=== PATIENT | male | born 1960 | race African-American/Black ===

== ENCOUNTER 2017-06-02 03:10 | Emergency (ER) | payer OTHER ==
[~2017-06-02] VITALS: Ht 188 cm; Wt 105.0 kg
[~2017-06-02 03:10] MED LIST: TRAM50TA PO
[2017-06-02] MEDS ORDERED: MIDAZOLAM HCL 2 MG/2 ML VIAL IM ONE (03:30)
[2017-06-02 04:03] LABS: BASOPHILS % 0.5 % (0.0-2.0); EOSINOPHILS % 1.1 % (0.0-5.0); HEMOGLOBIN. 16.4 g/dL (14.0-18.0); LYMPHOCYTES % 34.3 % (20.0-50.0); MEAN CORPUSCULAR HEMOGLOBIN 29.5 pg (28.0-32.0); MEAN CORPUSCULAR VOLUME 87.8 fL (80.0-94.0); MEAN PLATELET VOLUME 7.5 fl (7.4-10.4); MONOCYTES % 9.3 % (2.0-8.0); NEUTROPHILS % 54.8 % (40.0-76.0); PLATELET 255 x1000/uL (130-400); RED BLOOD CELL COUNT 5.58 mill/uL (4.7-6.1); RED CELL DISTRIBUTION WIDTH 13.5 % (11.6-14.6)
[2017-06-02 04:09] LABS: PROTHROMBIN TIME 10.6 sec (9.4-11.6)
[2017-06-02 04:20] LABS: CARBON DIOXIDE 25 mEq/L (21-32); CHLORIDE 109 mEq/L (98-107); ETHANOL BLOOD 267 mg/dL
[2017-06-02 05:11] LABS: GLUCOSE URINE NEGATIVE (NEGATIVE); KETONES URINE TRACE (NEGATIVE); LEUKOCYTE ESTERASE URINE NEGATIVE (NEGATIVE); NITRITE URINE NEGATIVE (NEGATIVE); OCCULT BLOOD URINE NEGATIVE (NEGATIVE); PH URINE 5.5 (4.5-8.0); PROTEIN URINE 1+ (NEGATIVE); SPECIFIC GRAVITY URINE 1.038 (1.005-1.030); UROBILINOGEN URINE 0.2 E.U./dL (0.2-1.0)
[2017-06-02 05:12] LABS: CLARITY URINE CLEAR (CLEAR); COLOR URINE YELLOW (YELLOW)
[2017-06-02 07:31] LABS: *AMPHETAMINES SCREEN URINE NEGATIVE (NEGATIVE); *BARBITURATES SCREEN URINE NEGATIVE (NEGATIVE); *BENZODIAZEPINES SCREEN URINE NEGATIVE (NEGATIVE); *COCAINE SCREEN URINE PRESUMTIVE POSITIVE (NEGATIVE); CANNABINOID URINE SCREEN NEGATIVE (NEGATIVE); METHADONE URINE SCREEN NEGATIVE (NEGATIVE); OPIATES URINE SCREEN NEGATIVE (NEGATIVE); PHENCYCLIDINE URINE SCREEN PRESUMTIVE POSITIVE (NEGATIVE)
[2017-06-02 10:05] VITALS: BP 124/97
== END 2017-06-02 10:26 | disposition home or self-care (01) ==
LOC: ER 03:10
DX: T40.5X1A Poisoning by cocaine, accidental (unintentional), initial encounter (principal); T40.991A Poisoning by other psychodysleptics [hallucinogens], accidental (unintentional), initial encounter; T51.0X1A Toxic effect of ethanol, accidental (unintentional), initial encounter; R41.82 Altered mental status, unspecified; F17.210 Nicotine dependence, cigarettes, uncomplicated; I10 Essential (primary) hypertension; Y90.8 Blood alcohol level of 240 mg/100 ml or more; Y92.488 Other paved roadways as the place of occurrence of the external cause
CPT/HCPCS: 36415; 70450; 80053; 80305; 81001; 85025; 85610; 96372; 99285; G0482; J2250; Z7610; A4315

== ENCOUNTER 2017-12-09 11:33 | Emergency (ER) | payer SELFPAY ==
[~2017-12-09] VITALS: Ht 185.4 cm; Wt 100.0 kg
[~2017-12-09 11:33] MED LIST changes: +LEVO250T2 PO; +LISI40TA4 PO
[2017-12-09] MEDS ORDERED: LIDOCAINE HCL 1% 20ML VIAL (Pyxis) INJ INFIL ONE ×2 (16:15→18:15)
[2017-12-09] MEDS ORDERED: LIDOCAINE HCL/PF 1% 10 MG/ML 5ML VIAL IJ SCH ×2 (16:30)
[2017-12-09 19:30] VITALS: BP 144/71
[2017-12-09 20:19] LABS: *BARBITURATES SCREEN URINE NEGATIVE (NEGATIVE); *BENZODIAZEPINES SCREEN URINE NEGATIVE (NEGATIVE); *COCAINE SCREEN URINE PRESUMTIVE POSITIVE (NEGATIVE)
[2017-12-09 20:20] LABS: *AMPHETAMINES SCREEN URINE NEGATIVE (NEGATIVE); CANNABINOID URINE SCREEN NEGATIVE (NEGATIVE); METHADONE URINE SCREEN NEGATIVE (NEGATIVE); OPIATES URINE SCREEN NEGATIVE (NEGATIVE); PHENCYCLIDINE URINE SCREEN NEGATIVE (NEGATIVE)
== END 2017-12-09 21:28 | disposition home or self-care (01) ==
LOC: ER 12:43
DX: S62.613A Displaced fracture of proximal phalanx of left middle finger, initial encounter for closed fracture (principal); S63.259A Unspecified dislocation of unspecified finger, initial encounter; F17.200 Nicotine dependence, unspecified, uncomplicated; F12.10 Cannabis abuse, uncomplicated; Z79.899 Other long term (current) drug therapy; W22.8XXA Striking against or struck by other objects, initial encounter; Y93.89 Activity, other specified; Y92.89 Other specified places as the place of occurrence of the external cause; Y99.8 Other external cause status
CPT/HCPCS: 26770; 73140; 80305; 99285; J3490; Z7610; A4565

== ENCOUNTER 2018-09-03 09:06 | Emergency (ER) | payer MEDICAID, OTHER ==
[~2018-09-03] VITALS: Ht 185.4 cm; Wt 87.0 kg
[2018-09-03 16:00] VITALS: BP 147/92
== END 2018-09-03 16:00 | disposition home or self-care (01) ==
LOC: ER 09:43
DX: S62.641A Nondisplaced fracture of proximal phalanx of left index finger, initial encounter for closed fracture (principal); J20.9 Acute bronchitis, unspecified; I10 Essential (primary) hypertension; F14.10 Cocaine abuse, uncomplicated; F12.10 Cannabis abuse, uncomplicated; F17.200 Nicotine dependence, unspecified, uncomplicated; Z79.899 Other long term (current) drug therapy; X58.XXXA Exposure to other specified factors, initial encounter; Y93.89 Activity, other specified; Y92.89 Other specified places as the place of occurrence of the external cause; Y99.8 Other external cause status
CPT/HCPCS: 29130; 71045; 73120; 99283

== ENCOUNTER 2018-09-16 13:13 | Emergency (ER) | payer MEDICAID ==
[~2018-09-16] VITALS: Ht 182.9 cm; Wt 94.0 kg
[2018-09-16 15:55] VITALS: BP 149/92
== END 2018-09-16 15:49 | disposition home or self-care (01) ==
LOC: ER 13:13
DX: T18.5XXA Foreign body in anus and rectum, initial encounter (principal); F17.200 Nicotine dependence, unspecified, uncomplicated; I10 Essential (primary) hypertension; X58.XXXA Exposure to other specified factors, initial encounter; Y93.89 Activity, other specified; Y92.89 Other specified places as the place of occurrence of the external cause; Z86.11 Personal history of tuberculosis
CPT/HCPCS: 72170; 99283

== ENCOUNTER 2018-12-24 10:55 | Inpatient (IN) | payer MEDICAID ==
[~2018-12-24] VITALS: Ht 177.8 cm; Wt 106.6 kg
[2018-12-24 12:21] LABS: BASOPHILS % 0.6 % (0.0-2.0); EOSINOPHILS % 2.2 % (0.0-5.0); HEMATOCRIT. 45.2 % (42.0-52.0); HEMOGLOBIN. 15.2 g/dL (14.0-18.0); MEAN CORPUSCULAR HEMOGLOBIN 28.8 pg (28.0-32.0); MEAN CORPUSCULAR VOLUME 85.8 fL (80.0-94.0); MEAN PLATELET VOLUME 7.1 fl (7.4-10.4); MONOCYTES % 9.6 % (2.0-8.0); NEUTROPHILS % 57.6 % (40.0-76.0); PLATELET 253 x1000/uL (130-400); RED BLOOD CELL COUNT 5.27 mill/uL (4.7-6.1); RED CELL DISTRIBUTION WIDTH 14.2 % (11.6-14.6)
[2018-12-24 12:27] LABS: CHLORIDE 111 mEq/L (98-107)
[2018-12-24 12:29] LABS: PROTHROMBIN TIME 10.3 sec (9.6-11.0)
[2018-12-24 12:31] LABS: ETHANOL BLOOD < 10 mg/dL
[2018-12-24] MEDS ORDERED: ASPIRIN 325MG EC TABLET PO ONE (13:15)
[2018-12-24 13:20] LABS: CLARITY URINE CLEAR (CLEAR); COLOR URINE YELLOW (YELLOW); KETONES URINE NEGATIVE (NEGATIVE); LEUKOCYTE ESTERASE URINE NEGATIVE (NEGATIVE); NITRITE URINE NEGATIVE (NEGATIVE); OCCULT BLOOD URINE NEGATIVE (NEGATIVE); PH URINE 5.5 (4.5-8.0); PROTEIN URINE NEGATIVE (NEGATIVE); SPECIFIC GRAVITY URINE 1.017 (1.005-1.030); UROBILINOGEN URINE 0.2 E.U./dL (0.2-1.0)
[2018-12-24 13:37] LABS: *BARBITURATES SCREEN URINE NEGATIVE (NEGATIVE)
[2018-12-24 13:38] LABS: *AMPHETAMINES SCREEN URINE NEGATIVE (NEGATIVE); *BENZODIAZEPINES SCREEN URINE NEGATIVE (NEGATIVE); *COCAINE SCREEN URINE NEGATIVE (NEGATIVE); CANNABINOID URINE SCREEN NEGATIVE (NEGATIVE); METHADONE URINE SCREEN NEGATIVE (NEGATIVE); PHENCYCLIDINE URINE SCREEN NEGATIVE (NEGATIVE)
[2018-12-24 13:39] LABS: OPIATES URINE SCREEN NEGATIVE (NEGATIVE)
[2018-12-24] MEDS ORDERED: DOCUSATE SODIUM 100MG CAPSULE PO PRN (17:15)
[2018-12-24] MEDS ORDERED: LORAZEPAM 0.5MG TABLET PO PRN (17:15)
[2018-12-24] MEDS ORDERED: CLONIDINE 0.1MG TABLET PO PRN (17:15)
[2018-12-24] MEDS ORDERED: IPRATROPIUM/ALBUTEROL 0.5-3(2.5)MG/3ML NEB INH PRN (17:15)
[2018-12-24] MEDS ORDERED: ONDANSETRON HCL 4MG/2ML INJ IV PRN (17:15)
[2018-12-24] MEDS ORDERED: ACETAMINOPHEN 325MG TABLET PO PRN (17:15)
[2018-12-24] MEDS ORDERED: HYDROCODONE/ACETAMINOPHEN 5/325MG TABLET PO PRN (17:15)
[2018-12-24 19:30] LABS: PHOSPHORUS 3.9 mg/dL (2.5-4.9)
[2018-12-24 22:00] VITALS: BP 134/87
[2018-12-25 04:00] VITALS: BP 144/91
[2018-12-25 06:47] LABS: EOSINOPHILS % 2.6 % (0.0-5.0); HEMATOCRIT. 43.5 % (42.0-52.0); HEMOGLOBIN. 14.7 g/dL (14.0-18.0); LYMPHOCYTES % 33.9 % (20.0-50.0); MEAN CORPUSCULAR HEMOGLOBIN 29.1 pg (28.0-32.0); MEAN CORPUSCULAR VOLUME 85.8 fL (80.0-94.0); MEAN PLATELET VOLUME 7.6 fl (7.4-10.4); MONOCYTES % 11.4 % (2.0-8.0); NEUTROPHILS % 51.1 % (40.0-76.0); PLATELET 249 x1000/uL (130-400); RED BLOOD CELL COUNT 5.07 mill/uL (4.7-6.1)
[2018-12-25 07:32] LABS: CHLORIDE 110 mEq/L (98-107)
[2018-12-25 08:00] VITALS: BP 135/84
[2018-12-25] MEDS ORDERED: ASPIRIN 81MG TABLET PO SCH (11:45)
[2018-12-25 12:00] VITALS: BP 139/86
[2018-12-25 16:00] VITALS: BP 132/76
[2018-12-25] MEDS: CLOPIDOGREL 75MG TABLET PO SCH (17:54)
[2018-12-25 20:00] VITALS: BP 145/90
[2018-12-25] MEDS ORDERED: ATORVASTATIN CALCIUM 20MG TABLET PO SCH (21:00)
[2018-12-26] VITALS: BP 128/83
[2018-12-26 04:00] VITALS: BP 145/91
[2018-12-26 06:26] LABS: BASOPHILS % 1.2 % (0.0-2.0); EOSINOPHILS % 3.1 % (0.0-5.0); HEMATOCRIT. 44.4 % (42.0-52.0); MEAN CORPUSCULAR HEMOGLOBIN 28.7 pg (28.0-32.0); MEAN CORPUSCULAR VOLUME 85.2 fL (80.0-94.0); MEAN PLATELET VOLUME 7.4 fl (7.4-10.4); NEUTROPHILS % 52.7 % (40.0-76.0); PLATELET 247 x1000/uL (130-400); RED BLOOD CELL COUNT 5.21 mill/uL (4.7-6.1); RED CELL DISTRIBUTION WIDTH 13.9 % (11.6-14.6)
[2018-12-26 06:37] LABS: CHLORIDE 110 mEq/L (98-107)
[2018-12-26 08:00] VITALS: BP 149/91
[2018-12-26] MEDS: CLOPIDOGREL 75MG TABLET PO SCH (08:48)
[2018-12-26 12:00] VITALS: BP 134/89
[2018-12-26 16:00] VITALS: BP 169/91
[2018-12-26] MEDS ORDERED: ATOR20TA PO (17:43)
[2018-12-26] MEDS ORDERED: CLOP75TA16 PO (17:43)
[2018-12-26 19:23] VITALS: BP 140/80
== END 2018-12-26 20:35 | disposition home health service (06) | DRG 45 ==
LOC: ER 10:55 → 8WST 12:12 → EDBEDREQ 13:17 → ENRESERV 21:09
PROVIDERS: ADMIT Internal Medicine; ATTEND Internal Medicine
DX: I63.9 Cerebral infarction, unspecified (principal); E87.8 Other disorders of electrolyte and fluid balance, not elsewhere classified; F17.210 Nicotine dependence, cigarettes, uncomplicated; I10 Essential (primary) hypertension; F19.10 Other psychoactive substance abuse, uncomplicated; G83.11 Monoplegia of lower limb affecting right dominant side; I25.10 Atherosclerotic heart disease of native coronary artery without angina pectoris; Z86.79 Personal history of other diseases of the circulatory system; Z91.19 Patient's noncompliance with other medical treatment and regimen; Z86.11 Personal history of tuberculosis
CPT/HCPCS: 36415; 70544; 70551; 71045; 80048; 80061; 80305; 80320; 83036; 83735; 83880; 84100; 84443; 84484; 93005; 93306; 93880; 97112; 97162; 99285; G0480

== ENCOUNTER 2023-04-12 19:04 | Emergency (ER) | payer MEDICAID, OTHER ==
[~2023-04-12] VITALS: Ht 182.9 cm; Wt 80.0 kg
[~2023-04-12 19:04] MED LIST changes: +ATOR20TA PO; +CLOP-31 PO; -LEVO250T2 PO; +LISI40TA13 PO; -LISI40TA4 PO
[2023-04-12 19:08] VITALS: BP 144/94; PULSE 80; RESP 18; TEMP 98.5; O2SAT 100
[2023-04-12] MEDS ORDERED: KETOROLAC 30MG/ML VIAL IM ONE (22:15)
[2023-04-12] MEDS ORDERED: LIDOCAINE 5% PATCH TOP SCH ×2 (22:15)
[2023-04-12] MEDS ORDERED: KETOROLAC 30MG/ML VIAL IM NR (22:15)
[2023-04-12] MEDS ORDERED: LIDO700A15 TP (22:52)
[2023-04-12] MEDS ORDERED: TOPUD MT (22:52)
== END 2023-04-13 | disposition home or self-care (01) ==
LOC: ER 19:04
DX: M54.50 Low back pain, unspecified (principal); I10 Essential (primary) hypertension; Z79.899 Other long term (current) drug therapy
CPT/HCPCS: 99283; J1885; Z7610; 99281